=== PATIENT | female | born 1960 | race Caucasian/White ===

== ENCOUNTER 2023-06-02 08:18 | Observation (INO) ==
--- NOTE | 2023-05-03 12:05 | PAT Medication Instructions ---
Medication Instructions Date of Service May 03, 2023 Home Medications albuterol sulfate 90 mcg/actuation aerosol inhaler 2 puff inhalation Q6H PRN Shortness Of Breath atorvastatin 40 mg tablet 40 mg PO HS furosemide 20 mg tablet 20 mg PO DAILY PRN Edema Gas Pill 2 tab PO UD PRN gas pain docusate sodium 100 mg capsule (Stool Softener) 200 mg PO BID PRN Constipation ibuprofen 200 mg-phenylephrine HCl 10 mg tablet (Advil Sinus Congestion-Pain) 1 tab PO Q4H PRN Congestion aspirin 81 mg capsule 81 mg PO QAM carvedilol 12.5 mg tablet 12.5 mg PO BID lisinopril 20 mg tablet 20 mg PO QAM ASK your surgeon for instructions ibuprofen 200 mg-phenylephrine HCl 10 mg tablet (Advil Sinus Congestion-Pain) 1 tab PO Q4H PRN Congestion DO NOT take the morning of surgery furosemide 20 mg tablet 20 mg PO DAILY PRN Edema Gas Pill 2 tab PO UD PRN gas pain docusate sodium 100 mg capsule (Stool Softener) 200 mg PO BID PRN Constipation lisinopril 20 mg tablet 20 mg PO QAM Take morning of surgery With a small sip of water, OTHERWISE NOTHING TO EAT OR DRINK AFTER MIDNIGHT: albuterol sulfate 90 mcg/actuation aerosol inhaler 2 puff inhalation Q6H PRN Shortness Of Breath (use if needed; please bring with you to hospital day of surgery if possible) atorvastatin 40 mg tablet 40 mg PO HS aspirin 81 mg capsule 81 mg PO QAM (unless surgeon directed otherwise) carvedilol 12.5 mg tablet 12.5 mg PO BID Take evening before surgery albuterol sulfate 90 mcg/actuation aerosol inhaler 2 puff inhalation Q6H PRN Shortness Of Breath (if needed) atorvastatin 40 mg tablet 40 mg PO HS furosemide 20 mg tablet 20 mg PO DAILY PRN Edema (if needed) Gas Pill 2 tab PO UD PRN gas pain (if needed) docusate sodium 100 mg capsule (Stool Softener) 200 mg PO BID PRN Constipation (if needed) carvedilol 12.5 mg tablet 12.5 mg PO BID Other Notes If you have any questions please call us at [phone] or [phone] or [phone] or [phone]
--- NOTE | 2023-05-09 14:42 | Anesthesiology Consultation ---
Date of Service May 09, 2023 Assessment & Plan (1) Encounter for pre-operative examination: Chart Review Chart Review: Acceptable Risk for Surgery (pending review of most recent cardio note ) and Patient seen in Pre Admission Testing - Please obtain most recent cardio note ([facility]- seen Mar 2023) - Patient is NOT an ideal OPJ candidate Per PAT appt on 05/05/23, no recent illness/disease exposures, illness related symptoms, or recent illness/disease positive tests. Will leave to surgeon's discretion if preop Covid testing needed - Cardiology note (10/25/22): "Catheterization performed today demonstrated nonobstructive disease. Chest pain is likely due to microvascular angina which is now well controlled with betablockers. From a cardiovascular standpoint she is stable for planned knee replacement. Aspirin, betablockers and lipidlowering therapy should be continued." (Discussed with Dr. Manuel- chest pain improved- still occasionally present- no updated clearances needed as symptoms have stay stable if not improved) - Received neuro/neurosurgery note (09/30/22): "My patient Sandy Crawford, is cleared to proceed with surgery. Ms. Crawford is only permitted to undergo surgery with general anesthesia, and is not permitted to have a nerve block during said procedure." > Neurology response reviewed with Dr. Manuel. He does not feel that anything further needed from neurology/no updated neuro response needed as symptoms has stayed stable prior to surgery from his perspective; will plan for general anesthesia. Teaching & Discussion Pre-Anesthesia Teaching/Discussion Notes: Instructed NPO after midnight before surgery,except medications with 15 cc of water. Medication instructions provided according to the PAT guidelines. History Surgery Operation Date: 06/02/23 10:20 Proposed Procedures p Right Total Knee Arthroplasty - Morris Velasquez, Height/Weight Height: 5 ft 2 in Weight: 82 kg Allergies Allergy/AdvReac Type Severity Reaction Status Date / Time No Known Allergies Allergy Verified 04/27/23 15:02 Medications Home Medications Medication Instructions Recorded Confirmed Last Taken albuterol sulfate 90 mcg/actuation 2 puff inhalation Q6H PRN 08/02/22 04/27/23 Unknown aerosol inhaler Shortness Of Breath atorvastatin 40 mg tablet 40 mg PO HS 08/02/22 04/27/23 Unknown furosemide 20 mg tablet 20 mg PO DAILY PRN Edema 08/02/22 04/27/23 Unknown Gas Pill 2 tab PO UD PRN gas pain 09/06/22 04/27/23 Unknown docusate sodium 100 mg capsule 200 mg PO BID PRN Constipation 09/06/22 04/27/23 Unknown (Stool Softener) ibuprofen 200 mg-phenylephrine HCl 1 tab PO Q4H PRN Congestion 09/06/22 04/27/23 Unknown 10 mg tablet (Advil Sinus Congestion-Pain) aspirin 81 mg capsule 81 mg PO QAM 11/23/22 04/27/23 Unknown carvedilol 12.5 mg tablet 12.5 mg PO BID 11/23/22 04/27/23 Unknown lisinopril 20 mg tablet 20 mg PO QAM 11/23/22 04/27/23 Unknown Past Medical History Medical History (Updated 05/09/23 @ 14:37 by Monica Dunn PA-C) Asthma Breathing stable Atypical chest pain Rare- improved with meds and BP control Chronic, intermittent issue s/p unremarkable cardiac testing Follows with [facility]/dr. Trinh CAD (coronary artery disease) Nonobstructive per 10/2022 cath Chiari malformation type I Follows with neurology, referred to [facility] Persistent dizziness felt r/t Chiari Malformation- plan for future surgery to correct this per patient ([facility] feels knee replacements should be done first to help with balance) Congestion of nasal sinus Chronic issue treated with OTC meds COPD (chronic obstructive pulmonary disease) History of COVID-19 Dx 2021, (tested at [facility] > transferred to [facility]) Hospitalized for 10 days d/t covid PNA, NIKITA, "got a tear in her stomach" > stomach "tear" healed + no residual issues HTN (hypertension) Hyperlipidemia Obesity Vertigo Intermittent Exercise / Class Metabolic Activity III < 4 Walking/Shop/Light housework (no chest pain or SOB with flat surface ambulation - uses walker in public- uses furniture at home to ambulate ) Past Surgical History Surgical History History of cardiac cath 10/2022 [facility]. CP. no stents. History of section x2 History of colon resection due to abscess History of dilatation and curettage History of kidney surgery abscess removed from kidney Hx of bilateral cataract extraction Hx of colonoscopy Nausea and vomiting after administration of anesthetic agent Single episode after colonoscopy Past Anesthesia History No Hx of Anesthesia Complications (with exception to remote history of PONV with colonoscopy ) and No Family Hx of Anesthesia Complications History of PONV History of PONV (with exception to remote history of PONV- with colonoscopy- no issues with other surgeries ) and Hx of Motion Sickness Social History Smoking Status: Current every day smoker tobacco type: cigarettes Smoking cigarettes per day: 10 cigs/day Do You Dip or Chew Tobacco: No Hx Alcohol Use: No Hx Substance Use: No substance use type: does not use Review of Systems - Chronic GERARD, cough, wheezing due to COPD - chronic and stable - GERD- stable with OTC Omeprazole; Pepcid PRN - Hx of snoring- hx of sleep study (many years ago)- inconclusive study Patient denies shortness of breath at rest, palpitations. No hx of seizures, stroke, NV. No hx of blood clots or blood transfusions Physical Exam Vital Signs VITALS BP 147/75 P 71 TEMP 97.9 SP02 94% on RA RESP 16 Constitutional no acute distress ENMT Mouth: no TMJ clicking Thyromental Distance: > or= 3.5 Finger Breadths (3.5) Mallampati Class: II Missing side teeth/molars Neck neck extension not limited Respiratory normal respiratory effort; no respiratory distress Auscultation: lungs clear to auscultation bilaterally and + diminished lung sounds (mildly throughout); no wheezes Cardiovascular Rate/Rhythm: regular rate and regular rhythm Heart Sounds: no murmur Vessels: no carotid bruit Musculoskeletal Spine: no pain with cervical ROM Extremities: extremities normal to inspection Psychiatric Orientation: alert Lab Results Anesthesia Preop Results Results Anesthesia Widget: WBC 9.60 K/ul (4.8-10.8) 05/09/23 Hgb 13.5 g/dl (12.0-16.0) 05/09/23 Hct 42.3 % (37.0-47.0) 05/09/23 Plt 345 K/uL (130-400) 05/09/23 Na 139 mmol/L (136-145) 05/09/23 K 4.8 mmol/L (3.5-5.1) 05/09/23 Cl 105 mmol/L (98-107) 05/09/23 CO2 27 mmol/L (21-32) 05/09/23 BUN 15 mg/dl (6-23) 05/09/23 Creat 0.69 mg/dl (0.6-1.2) 05/09/23 Glucose Level 98 mg/dl (70-99(Fasting)) 05/09/23 PT 11.8 Seconds (9.0-12.0) 05/09/23 PTT 29 Seconds (21-31) 05/09/23 INR 1.1 (0.9-1.1) 05/09/23 Blood Type O Positive 05/09/23 Antibody Screen NEGATIVE 05/09/23 Testing Electrocardiogram Date: 05/09/23 Findings: + NSR @ (61bpm) Normal EKG per cardio Chest X-Ray Date: 09/15/22 FINDINGS: Cardiac mediastinal and hilar silhouettes are within normal limits. Mild hyperinflation with diaphragmatic flattening. There is no pneumothorax, pl eural effusion, airspace consolidation or pulmonary edema. The bones of the chest appear grossly intact. Degenerative changes of the shoulders and spine. IMPRESSION: No acute process. Stress Test Date: 05/12/21 Lexiscan stress EKG is not indicative of ischemia.Lexiscan Cardiolite myocardial perfusion imaging is negative for ischemia. Small fixed apical defect consistent with apical thinning, cannot entirely exclude small apical infarction. EF 66%. Cardiac Catheterization Date: 10/25/22 Nonobstructive two-vessel coronary disease, chest pain likely related to microvascular disease: LCx mid 40% RCA proximal 30% and distal 20%. Normal left ventricular systolic function, 8 EF 55% with ventricular hypertrophy suggesting hypertensive heart disease. Pulmonary hypertension on the basis of high cardiac output, probably secondary to obesity. Recommendations: The patient has nonobstructive coronary disease with microvascular angina. Cardiac risk factor modification and antihypertensive agents are appropriate. Symptoms have significantly improved with carvedilol. Carvedilol to be increased further to 12.5 mg twice daily. From a cardiovascular standpoint she is stable for planned right knee replacement. Smoking cessation advised as well as sustained weight loss.
[~2023-06-02 08:18] MED LIST: ROPIVACAINE 0.5% 5 MG/ML 30 ML VIAL ONE
[2023-06-02] MEDS ORDERED: MIDAZOLAM HCL 1 MG/ML 2ML VIAL ONE (08:25)
--- NOTE | 2023-06-02 09:01 | History & Physical Bridge Note ---
Date of Service June 02, 2023 History & Physical Bridge Note I have examined the patient, reviewed the History & Physical and in the interval since the performance of the History & Physical I have noted the following changes of clinical significance: no changes noted
[2023-06-02] MEDS ORDERED: fentaNYL citrate PF 100 MCG/2 ML VIAL ONE ×2 (09:06→10:23)
[2023-06-02] MEDS: LR 15ML/HR IV SCH (09:09)
[2023-06-02] MEDS: LR 60ML/HR IV SCH (09:09)
[2023-06-02] MEDS: GABAPENTIN 600 MG DOSE PO SCH (09:15)
[2023-06-02] MEDS: dexAMETHasone**PF** 10 MG/ML VIAL IV SCH (09:16)
[2023-06-02] MEDS: FAMOTIDINE 20 MG TAB PO SCH (09:16)
[2023-06-02] MEDS: ACETAMINOPHEN 500 MG TAB PO SCH ×2 (09:16→13:55)
[2023-06-02] MEDS ORDERED: fentaNYL citrate PF 100 MCG/2 ML VIAL IV PRN (09:32)
[2023-06-02] MEDS ORDERED: ATROPINE SULFATE 0.1 MG/ML 10ML SYR IV PRN (09:32)
[2023-06-02] MEDS ORDERED: ONDANSETRON INJ 2 MG/ML 2 ML VIAL IV PRN ×2 (09:32→12:49)
[2023-06-02] MEDS ORDERED: ePHEDrine sulfate 50 MG/ML AMP IV PRN (09:32)
[2023-06-02] MEDS ORDERED: HYDROmorphone INJ 1 MG/ML SYRINGE IV PRN (09:32)
[2023-06-02] MEDS: TRANEXAMIC ACID 1,000 MG **IV Pre-op IV SCH (09:42)
[2023-06-02] MEDS: ceFAZolin 2000MG 2,000 MG/15 ML SYR IV SCH (09:56)
[2023-06-02] MEDS ORDERED: PROPOFOL IV EMULSION 10 MG/ML 20 ML VIAL IV ONE ×2 (10:23)
[2023-06-02] MEDS ORDERED: ONDANSETRON INJ 2 MG/ML 2 ML VIAL ONE (10:23)
[2023-06-02] MEDS ORDERED: diphenhydrAMINE 50 MG/ML VIAL ONE (10:30)
[2023-06-02] MEDS ORDERED: GLYCOPYRROLATE 0.2 MG/ML VIAL ONE (10:30)
[2023-06-02] MEDS ORDERED: PHENYLEPHRINE 100MCG/ML 10ML SYR IV ONE (10:52)
[2023-06-02] MEDS ORDERED: ePHEDrine sulfate 50 MG/ML AMP ONE (10:52)
[2023-06-02] MEDS: ROPIV 0.5% 246mg, Ketorolac 30mg, EPINEPHrine 0.5mg in NSS INFIL SCH (10:56)
[2023-06-02] MEDS: ORTHO JOINT ANESTHETIC ONE (10:56)
[2023-06-02] MEDS: TRANEXAMIC ACID 1,000 MG **IV Intra-op IV SCH (11:08)
--- NOTE | 2023-06-02 11:13 | Operative Report ---
PG Post Operative Report Pre & Post Diagnosis Operation Date: 06/02/23 10:00 Pre-Op Diagnosis: Degenerative Joint Disease Right Knee Post-Op Diagnosis: Degenerative Joint Disease Right Knee I identified the patient and participated in the time-out.: Yes Procedure Operation Date: 06/02/23 10:00 Actual Procedures p Right Total Knee Arthroplasty(Right) - Morris Velasquez DO Surgeon Morris Velasquez DO [employer] Account Manager Sonido Haile PA-C Estimated Blood Loss 30 Findings Consistent with Post-Op Diagnosis Specimens Right femoral and tibial bone Description of Procedure Implants used: I used a David Persona total knee arthroplasty system with a size 7 narrow PS femur, D tibia, 31 oval patella, and a size 14 CPS polyethylene bearing. All components were cemented in place with Biomet cement. Sandy arrived [facility] for the above procedure. She was seen in the preoperative holding area and the operative extremity was identified and signed. She was given a preoperative antibiotic, TXA, a spinal anesthetic and an adductor nerve block. She was taken back to the operating room and laid on the table in supine position. She was given basic sedation. The operative knee was then prepped and draped in sterile fashion. A timeout was done, and the patient and the operative extremity was properly identified. A midline incision was made directly over the patella. Dissection was taken down to the extensor mechanism. A medial parapatellar arthrotomy was used. The medial retinaculum was released and the fat pad was mostly excised. The knee was flexed and the ACL, PCL, and meniscus were removed. A drill was sent down the center of the femoral canal followed by an intramedullary damion. Off that damion a distal femoral cutting block was placed. 9 mm was resected off the distal femur at 5 of valgus. A posterior referencing AP sizing guide was then placed on the distal femur. The femur measured to be a size 7. 2 drill holes were placed in 3 of external rotation. A 4-in-1 cutting block was then impacted into place. Anterior, posterior, and chamfer cuts were then made. The proximal tibia was then exposed. An external tibial alignment guide was placed. A tibial cut guide was then anchored in place and the proximal tibia was then resected. The posterior aspect of the knee was then opened up and any additional meniscus fragments and osteophytes were removed. The tibia measured to be a size D. The tibial plate was then placed in the appropriate rotation and the tibia was drilled and punched. Trial components were then placed. I used a size 14 CPS polyethylene insert. The knee was brought through a full range of motion and felt to be stable. The peg holes for the femoral component were then drilled. The patella was then everted and 9 mm was resected off the posterior aspect of the patella. The patella measured to be a size 31 oval. 3 peg holes were then drilled. A trial patella was placed. The knee was once again brought through a full range of motion and felt to be stable. Trial components were then removed. The surrounding soft tissues were injected with 100 cc of an orthopedic pain control cocktail. All components were then cemented into place with Biomet cement. The final polyethylene insert was then snapped into place. Once cement was dry the tourniquet was deflated. Hemostasis was obtained. A dilute betadyne lavage was then done for 3 minutes. The joint was then irrigated with normal saline solution. The medial parapatellar arthrotomy was then closed with #1 Vicryl suture. The skin was closed with 2-0 Vicryl, 3-0V lock suture, and mario alberto. A soft compressive dressing was placed. She was then transferred to a hospital bed and taken to the postanesthesia care unit in stable condition. She tolerated the procedure well. Sonido Haile PA-C, was present for the entire procedure. He was critical for patient positioning, prepping, draping, retraction exposure, wound closure and application of sterile dressing. I attest to the content of the Intraoperative Record and any orders documented therein. Any exceptions are noted below.
--- NOTE | 2023-06-02 12:19 | XRay Report ---
XR knee RT 1 or 2V routine CLINICAL HISTORY: Postoperative evaluation. COMPARISON: Right knee radiographs May 09, 2023. FINDINGS: Alignment of the total right knee arthroplasty is anatomic. There is no periprosthetic fra cture or unexpected radiopaque foreign body. There are skin mario alberto. IMPRESSION: Expected findings following total right knee arthroplasty. ACT 112: Negative or not required by law. Electronically signed by: Scar Moise M.D. 06/02/2023 12:16 PM
[2023-06-02] MEDS ORDERED: oxyCODONE HCL IR 5 MG TAB (IMMEDIATE RELEASE) PO PRN (12:49)
[2023-06-02] MEDS ORDERED: traMADol HCL 50 MG TABLET PO PRN (12:49)
[2023-06-02] MEDS ORDERED: FUROSEMIDE 20 MG TAB PO PRN (12:49)
[2023-06-02] MEDS ORDERED: HYDROmorphone INJ 0.5 MG/0.5 ML SYR IV PRN (12:49)
[2023-06-02] MEDS ORDERED: MAGNESIUM HYDROXIDE SUSP 30 ML UDC PO PRN (12:49)
[2023-06-02] MEDS ORDERED: NALOXONE HCL 0.4 MG/1 ML VIAL/CARP IV PRN (12:49)
[2023-06-02] MEDS ORDERED: METOCLOPRAMIDE HCL INJ 5 MG/ML 2 ML VIAL IV PRN (12:49)
[2023-06-02] MEDS ORDERED: bisacodyL 10 MG SUPP PR PRN (12:49)
--- NOTE | 2023-06-02 12:49 | Anesthesiology Progress Note ---
Date of Service June 02, 2023 Anesthesia Post Procedure Vital Signs Vital Signs: Temp Pulse Resp BP Pulse Ox O2 Del Method O2 Flow Rate 06/02/23 12:25 36.3 C L 74 15 117/81 92 Nasal Cannula 2 06/02/23 12:15 75 16 121/79 92 Nasal Cannula 2 06/02/23 12:05 78 16 126/85 97 Oxymask 2 06/02/23 11:55 81 20 111/76 99 Oxymask 4 06/02/23 11:45 36.3 C L 83 18 117/79 97 Oxymask 6 06/02/23 08:54 36.6 C 69 18 133/94 94 Room Air Transfer of Care Handoff Completed per policy Notes Mental Status: alert / awake / arousable and participated in evaluation Patient Amnestic to Procedure: Yes Nausea / Vomiting: adequately controlled Pain: adequately controlled Airway Patency, RR, SpO2: stable & adequate BP & HR: stable & adequate Hydration State: stable & adequate Anesthetic Complications: no major complications apparent and Pt Satisfied with anesthetic care
[2023-06-02] MEDS: SODIUM CHLORIDE 0.9% 1,000 ML IV SCH (13:54)
[2023-06-02] MEDS: KETOROLAC TROMETHAMINE 15 MG/ML VIAL IV SCH (13:55)
[2023-06-02] MEDS: carvediloL 12.5 MG TAB PO SCH (16:47)
[2023-06-02] MEDS: ceFAZolin 1000MG 1,000 MG/7.5 ML SYR IV SCH (16:48)
[2023-06-02] MEDS: ASPIRIN 81 MG ECTAB PO SCH (20:48)
[2023-06-02] MEDS: SENNA 8.6 MG TAB PO SCH (20:48)
[2023-06-02] MEDS: ATORVASTATIN 40 MG TAB PO SCH (20:48)
[2023-06-02] MEDS: DOCUSATE SODIUM 100 MG CAP PO SCH (20:48)
[2023-06-03] MEDS: lisinopril 20 MG TAB PO SCH (07:35)
[2023-06-03] MEDS: MULTIVITAMIN TAB PO SCH (07:35)
[2023-06-03] MEDS: dexAMETHasone 4 MG TAB PO SCH (07:35)
--- NOTE | 2023-06-03 08:16 | Orthopedic Progress Note ---
Date of Service June 03, 2023 Assessment & Plan (1) Status post right knee replacement: Overall she is doing very well. She is not having much pain in the right knee. She will be seen by physical therapy today for ambulation and range of motion exercises. She is on aspirin for DVT prophylaxis. She can be discharged home later today. She will follow-up orthopedics in 2 weeks. Rosi Delgado was seen and examined at bedside this morning. Overall she is doing very well. She is not having much pain in the right knee. She has been up and ambulating to the bathroom. She has no complaints.. Review of Systems All systems reviewed & are unremarkable except as noted in HPI & below. Physical Exam On physical examination of right knee, the dressing is clean and dry. Her leg is out full extension. She has active dorsiflexion plantarflexion of the right ankle.. Results & Data Results & Data Laboratory Results . Diagnostic Findings Postoperative x-rays of the right knee show the prosthesis to be in anatomic alignment without any evidence of fracture complication, or loosening.. PG Care Time/CCT Total # of Minutes Spent Total Time Spent with Patient: Total time spent is greater than 50% in coordination of care (as documented) at patient's floor/unit and/or counseling patient: Coding Level of Care Code 59894 Post Operative Follow-Up Diagnoses Status post right knee replacement Z96.651
--- NOTE | 2023-06-03 08:17 | Discharge Summary ---
Date of Service June 03, 2023 Principal Diagnosis Same as "Discharge Diagnosis" noted below under Discharge Instructions. Discharge Exam On physical examination of right knee, the dressing is clean and dry. Her leg is out full extension. She has active dorsiflexion plantarflexion of the right ankle.. Discharge Data Procedures Performed Operation Date: 06/02/23 10:00 Actual Procedures p Right Total Knee Arthroplasty(Right) - Morris Velasquez DO Ordered Studies 06/02/23 05:00 US - OR guided needle placemen Routine Hospital Course (1) Status post right knee replacement: On June 02, 2023 Sandy arrived at [facility] and underwent a right knee replacement without complication. She had a spinal anesthetic. Postoperatively she was started on aspirin for DVT prophylaxis and transferred to the general orthopedic floors. Her hospital course was uneventful. On postop day #1, her vital signs were stable and her pain was well-controlled. She was able to participate well with physical therapy doing ambulation and range of motion exercises. She was then discharged home. She will follow-up orthopedics in 2 weeks. PG Care Time/CCT Total # of Minutes Spent Total Time Spent with Patient: Total time spent is greater than 50% in coordination of care (as documented) at patient's floor/unit and/or counseling patient: Discharge Plan Discharge Items Patient Disposition: Home - Self-Care Reason For Visit: Degenerative Joint Disease Right Knee Discharge Diagnosis: Right knee replacement Activity: Per Instructions section Non-emergency contact: Surgeon Call non-emergency contact if: your wound has increased redness and your wound has increased drainage Follow-up/Referrals: Luis Ruiz PA-C [Primary Care Provider] - Diet: Regular Addtl Attending Provider Instructions: Activity and Therapy Recommendations: * If you are using [facility] then therapy will be provided at your home until they feel you have accomplished all of your goals. * If you are using [facility] then Physical Therapy will be provided until they feel you are ready to start Outpatient Physical Therapy. * If you are not using home therapy then Outpatient Physical Therapy should start about 3-5 days from your day of surgery. Therapy will last about 6-10 weeks * It is important not to put a pillow under your knee when you are relaxing or sleeping. It is just as important to make sure you are getting your knee perfectly straight as it is to regain your knee bend. * You were shown a series of exercises in the hospital. Do these exercises three times each day including the exercises you were shown in physical therapy. * Get up and walk several times each day. For the first four weeks, try not to stand or walk for more than one hour at a time. If you do stand or walk for more than one hour, you will not hurt anything, but your leg will likely swell. * As you feel comfortable, you may change from the walker or crutches to a cane and then to independent walking. Medications: * Narcotic You will likely be sent home from the hospital with a prescription for the narcotic pain medication that worked best throughout your stay. * Cefadroxil -take the antibiotic twice a day for 10 days to help prevent infection. * Aspirin Most patients will be required to take Aspirin 81mg twice a day for 6 weeks after surgery. This is obtained [id number] and a prescription is not necessary. * Other medications may be prescribed for specific circumstances. If you have any questions, please call the office at . * Resume previous home medications unless otherwise instructed TEDs/Elastic Stockings: The white elastic stockings help limit swelling and prevent blood clots from forming in your legs.~ The more you wear them, the more they work. Wear them for six weeks. Dressing Care: The dressing can be changed after physical therapy on postop day #1. Daily dry dressing changes for a few days, especially if the incision is still draining some. If the incision is not draining then you may leave the mario alberto open to air. If there is a little bit of drainage or if the mario alberto are getting stuck on your clothing then cover the incision with a dry dressing. The mario alberto will be removed at your 2 week follow-up appointment. Showering: You may shower 5 days from the day of surgery as long as the incision is no longer draining. You may shower with the mario alberto exposed. Let soapy water run over the mario alberto and pat them dry. Do not scrub or soak the incision. Things To Watch For: * Drainage from the incision site that occurs more than one week after your surgery. * Increased redness at the incision site. * Fever above 102 degrees Fahrenheit. * Unusual chest pain or shortness of breath. * Call [facility] at with any of the above problems Follow-Up Visit: Follow-up with Dr. Velasquez's PA (Morris Hernandez) 2-3 weeks after your day of surgery. He will remove your mario alberto and answer any questions. If you have any additional questions or concerns, Dr Velasquez is usually in the office at the same time and will be available An appointment was probably scheduled when you signed-up for surgery in the office. If you have any questions call Office Instructions: More detailed instructions as well as Frequently Asked Questions were provided in a folder by our office when you signed-up for surgery. Please review these instructions when you get home. If you have any further questions or concerns, please feel free to call the office at [phone] Pending Studies at Discharge: No Stand-Alone Forms: [facility] [employer], Smoking Cessation Medications and DC Order Prescriptions: New oxycodone 5 mg Tablet 5 mg PO Q4H PRN (Reason: pain) Qty: 30 0RF cefadroxil 500 mg capsule 500 mg PO BID 10 Days Qty: 20 0RF Continued atorvastatin 40 mg tablet 40 mg PO HS furosemide 20 mg tablet 20 mg PO DAILY PRN (Reason: Edema) Patient Comments: has not used in awhile albuterol sulfate 90 mcg/actuation HFA aerosol inhaler 2 puff inhalation Q6H PRN (Reason: Shortness Of Breath) Advil Sinus Congestion-Pain 200-10 mg Tablet 1 tab PO Q4H PRN (Reason: Congestion) Patient Comments: usually takes twice daily docusate sodium [Stool Softener] 100 mg Capsule 200 mg PO BID PRN (Reason: Constipation) carvedilol 12.5 mg Tablet 12.5 mg PO BID Rx Instructions: must administer with a meal/food lisinopril 20 mg Tablet 20 mg PO QAM simethicone [Gas-X] 80 mg Tablet,Chewable 160 mg PO DAILY PRN (Reason: Gastrointestinal Spasms Or Cramping) guaifenesin [Chest Congestion Relief] 400 mg Tablet 400 mg PO Q4H PRN (Reason: Congestion) Changed aspirin 81 mg Capsule 81 mg PO BID 42 Days Qty: 0 0RF Discharge Orders: Discharge Order (Routine); Ordered 06/03/23 Ordered By: Morris Velasquez Admission Data Admit Date/Time: 06/02/23 12:52 Attending Provider: Morris Velasquez Admit Provider: Morris Velasquez Primary Care Provider: Luis Ruiz
== END 2023-06-03 11:15 | disposition home or self-care (01) ==
LOC: ASU 08:18 → 3E 08:18